=== PATIENT | male | born 1950 | race Caucasian/White ===

== ENCOUNTER 2016-08-11 06:25 | Day surgery (SDC) | payer MEDICARE, OTHER ==
[2016-08-09 12:45] LABS: BASOPHILS 0.2 %; BASOPHILS ABSOLUTE 0.02 10/3/uL (0.0-0.16); EOSINOPHILS 3.6 %; EOSINOPHILS ABSOLUTE 0.34 10/3/uL (0.0-0.53); HEMATOCRIT 40.2 % (40.0-51.0); HEMOGLOBIN 13.7 g/dL (13.6-17.8); IMMATURE GRANULOCYTES 0.1 %; IMMATURE GRANULOCYTES ABSOLUTE 0.01 10/3/uL (0.0-0.11); LYMPHOCYTES 29.7 %; LYMPHOCYTES ABSOLUTE 2.77 10/3/uL (0.67-4.30); MANUAL DIFF NO %; MEAN CORPUS HGB CONC 34.1 g/dL (32.0-36.0); MEAN CORPUSCULAR HEMOGLOB 32.6 pg (26.0-34.0); MEAN CORPUSCULAR VOLUME 95.7 fL (80-100); MEAN PLATELET VOLUME 9.9 fL (9.2-13.0); MONOCYTES 5.5 %; MONOCYTES ABSOLUTE 0.51 10/3/uL (0.21-1.20); NEUTROPHILS 60.9 %; NEUTROPHILS ABSOLUTE 5.67 10/3/uL (2.02-8.40); PLATELET COUNT 192 10/3/uL (150-400); RBC DISTRIBUTION WIDTH 14.2 % (12.0-16.0); WHITE BLOOD CELLS 9.3 10/3/uL (4.5-10.5)
[2016-08-09 13:02] LABS: A/G RATIO 1.1 (0.7-1.9); ALBUMIN 3.7 G/DL (3.5-5.0); CALCIUM, SERUM 9.1 MG/DL (8.5-10.4); CHLORIDE, SERUM 109 MMOL/L (96-112); CO2 (CARBON DIOXIDE) 25 MMOL/L (24-34); CREATININE 0.85 MG/DL (0.70-1.30); GFR AFRICAN AMERICAN 104 ML/MIN (>=60); GFR NON AFRICAN AMERICAN 90 ML/MIN (>=60); GLOBULIN 3.3 G/DL (2.5-4.1); SGOT(AST) 11 U/L (5-40); SGPT(ALT) 19 U/L (5-65); SODIUM, SERUM 144 MMOL/L (135-148); TOTAL BILIRUBIN 0.6 MG/DL (0-1.2)
[2016-08-09 13:05] LABS: ALKALINE PHOSPHATASE 125 U/L (45-117); BUN (BLOOD UREA NITROGEN) 8 MG/DL (6-23); GLUCOSE, SERUM 209 MG/DL (60-99); POTASSIUM, SERUM 5.4 MMOL/L (3.5-5.3)
--- NOTE | ~2016-08-11 | OP ---
Record Of Operation [facility] [address] [place]. [address] NAME: BARRY JEFFERS : 48 [place] [facility] [place] [id number] AGE: 66 ADM/REG DATE : 08/11/16 MR#: [id number] REPORT SERV DATE: 08/11/16 DICTATED BY: BABATUNDE ROE III DATE: 08/11/16 REPORT STATUS : Draft TRANSCRIBED BY: MODL DATE: 08/11/16 DATE OF PROCEDURE: 08/11/2016 PREOPERATIVE DIAGNOSES: Malignant melanoma of the right forearm and malignant melanoma of the right shoulder. POSTOPERATIVE DIAGNOSES: Malignant melanoma of the right forearm and malignant melanoma of the right shoulder. PROCEDURES: Wide local resection of malignant melanoma from the right forearm, wide local excision of malignant melanoma from the right shoulder, with right axillary sentinel lymph node biopsy. SURGEON: Babatunde Roe M.D. ANESTHESIA: General with intubation. COMPLICATIONS: None. ESTIMATED BLOOD LOSS: Less than 5 mL. SPECIMENS: Malignant melanoma from the right forearm, right shoulder, and sentinel lymph node from the right axilla. DRAINS: None. LAP AND SPONGE COUNT: Correct x3. BRIEF HISTORY: This 66-year-old male was recently diagnosed with a deep malignant melanoma of the right forearm, measuring 3.1 mm in thickness, and a thin malignant melanoma of the right shoulder, measuring 0.26 mm in thickness. It was felt that wide local resection of each of these with sentinel lymph node biopsy, likely to involve the right axilla, was indicated. This procedure, the risks, benefits, and alternatives, including but not limited to the risk for bleeding, infection, pain, swelling, scarring, deformity of any of the area, seroma formation, hematoma formation, wound failure, wound dehiscence, nerve injury, chronic paresthesia or pain in the arm, shoulder, or axilla, spinal accessory nerve injuries, muscle weakness or paralysis in the muscles of the upper back or shoulder, chronic lymphedema of the arm, possible need to return for completion of axillary dissection, and unforeseen complications including deep venous thrombosis, pulmonary embolus, myocardial infarction, stroke, pneumonia, and were fully and completely explained to the patient prior to the surgery. The expected length of recovery was explained to the patient. The patient had questions, which were answered. He fully understood the risks and agreed to the surgery as planned. DESCRIPTION OF PROCEDURE: After being properly identified, and after identifying each of the areas of concern with him in the preoperative area, and after lymphoscintigraphy had been Record Of Operation [address] [place]. [address] NAME: BARRY JEFFERS : 48 [place] [facility] [place]#: [id number] AGE: 66 ADM/REG DATE : 08/11/16 MR#: [id number] REPORT SERV DATE: 08/11/16 DICTATED BY: BABATUNDE ROE III DATE: 08/11/16 REPORT STATUS : Draft TRANSCRIBED BY: KAITLYN DATE: 08/11/16 performed per Radiology, the patient was taken to the operating room, and placed in the supine position on the operating room table. General anesthesia was administered. He was intubated without difficulty. His right arm was placed on the armboard. His shoulder and arm were padded appropriately. The right arm, right axilla, and right chest were prepped and draped sterilely in the usual fashion. After an appropriate "time-out" per JCAHO standards, we made an elliptical shaped vertically oriented incision centered around the melanoma of the proximal forearm. The incision was made so as to have at least a 2 cm margin around the entire periphery of the lesion. The length of the incision was approximately 8 cm. The incision was continued through the subcutaneous tissue. Hemostasis was controlled with the cautery. The entire block of tissue consisting of skin, subcutaneous tissue down to the level of the fascia was excised. The lesion was then oriented with sutures. At no point any neurovascular structures were encountered or injured. Using sharp dissection, the skin and subcutaneous tissue around the periphery of the defect was mobilized fully so to allow for primary closure. Hemostasis was assured. The subcutaneous tissue was then closed with interrupted 2-0 Vicryl sutures. The skin was closed with a running subcuticular 4-0 Monocryl stitch. The incision was injected with 0.5% Marcaine. We then made an incision in the right axilla. Using sharp dissection, we dissected into the axilla. Using the navigator probe, we identified a large sentinel lymph node. This lymph node was completely resected. The ex-vivo 10-second count of this lymph node was approximately 4200. The background count of the axilla over 10 seconds after removal of the lymph node was essentially zero. This lymph node was fairly large. It was sent for permanent pathology. The area in the axilla was inspected and palpated. No other suspicious lesions or abnormalities were identified. Hemostasis was assured. The subcutaneous tissue was closed with a running 3-0 Vicryl suture. The skin was closed with a running subcuticular 4-0 Monocryl stitch. The incision was injected with 0.5% Marcaine. Dermabond dressings were applied. The patient was then rolled into the lateral position so as to expose the right shoulder. We made an elliptical shaped vertically oriented incision around the melanoma on the right shoulder, having at least a 2 cm margin around the entire periphery of the lesion. I think this incision was approximately 6 to 7 cm, and the skin and subcutaneous tissue was then excised down to the level of the fascia. The entire block of tissue was thus removed and oriented with sutures and sent for permanent pathology. Using sharp dissection, the skin and subcutaneous tissue around entire periphery defect was mobilized for several centimeters so as to allow for primary closure. The subcutaneous tissue was closed with interrupted 2-0 Vicryl sutures. The skin was closed with a running subcuticular 4-0 Monocryl stitch. The incision was injected with 0.5% Marcaine. Dressings were applied. Anesthesia was reversed. The patient was taken to the recovery room in stable condition. He tolerated the procedure well. His family was informed the results of Record Of Operation [address] [place]. [address] NAME: BARRY JEFFERS : 48 STATUS : REG [facility]#: [id number] AGE: 66 ADM/REG DATE : 08/11/16 MR#: [id number] REPORT SERV DATE: 08/11/16 DICTATED BY: BABATUNDE ROE III DATE: 08/11/16 REPORT STATUS : Draft TRANSCRIBED BY: MODL DATE: 08/11/16 the surgery. The patient will be discharged when stable and comfortable. His family was advised to keep his wounds clean and dry for 48 hours, that he should not drive for three to four days after surgery while using narcotics, that he should not perform any heavy lifting for five to six weeks, and that he should resume his usual medications. He has been asked to return in two weeks for followup sooner if any fever, chills, wound drainage, or other problems prior to that time. He was given a prescription for Percocet 7.5 one t.i.d., #15 as needed for pain, which he was advised not to use while driving. RHJ/KHARIL Babatunde Roe III, M.D. / [id number] CC: Leticia Luna III, M.D.
--- NOTE | ~2016-08-11 | PREOPHP ---
PreOp History and Physical [id number] [place]. [address] NAME: BARRY JEFFERS : 48 STATUS : PRE [facility]#: [id number] AGE: 66 ADM/REG DATE : MR#: [id number] REPORT SERV DATE: 08/11/16 DICTATED BY: BABATUNDE ROE III DATE: 08/05/16 REPORT STATUS : Draft TRANSCRIBED BY: MODL DATE: 08/05/16 HISTORY OF PRESENT ILLNESS: This 66-year-old male comes to the operating room for wide local resection of a malignant melanoma of the right upper shoulder, wide excision of a malignant melanoma of the right forearm, sentinel lymph node biopsy. The patient was recently evaluated for cutaneous lesion on his left upper arm which would not heal. He was found to have several other lesions, including one lesion on his right shoulder which was biopsied and found to be melanoma as well as one on the right forearm. The lesion on the right forearm is a 3.1 mm thickness, Jericho's level 4 malignant melanoma, with mitotic index of 10. The lesion removed from the right shoulder was 0.26 mm in size. The patient comes to the operating room now for wide local resection of each of these malignancies with sentinel lymph node biopsy which would likely involve the right axilla. PAST MEDICAL HISTORY: 1. COPD secondary to tobacco abuse. 2. Tobacco abuse. 3. Obesity. 4. Hypertension. 5. Coronary artery disease. 6. Insulin-dependent diabetes mellitus. MEDICATIONS: Amlodipine, atorvastatin, carvedilol, gabapentin, insulin, Victoza, losartan, metformin, and vitamin D. PAST SURGICAL HISTORY: Status post coronary artery bypass graft. ALLERGIES: MONOPRIL. FAMILY HISTORY: Positive for diabetes and heart disease. SOCIAL HISTORY: The patient has a history of tobacco abuse and alcohol use. REVIEW OF SYSTEMS: The patient complains of chronic dyspnea, easy bruising, back pain. His 14-point review of systems is otherwise unremarkable. PHYSICAL EXAMINATION: GENERAL: Reveals an obese male, in no acute distress. He is alert and oriented x3. VITAL SIGNS: Blood pressure 90/58, heart rate 67, temp 98.7. HEENT: Unremarkable. Cranial nerves II through XII were normal. NECK: Unremarkable with no adenopathy. Over the right shoulder, there is a large open wound where a shave biopsy had been performed. The length of the wound is some 3 cm in size. The wound was clean and granulating, but a full-thickness wound. Both left and right axilla normal with no adenopathy. Over the right forearm, the patient has a biopsy site with sutures in place for melanoma which was biopsied. LUNGS: Clear. CARDIAC: Normal. EXTREMITIES: Otherwise unremarkable. PreOp History and Physical [address] [address] NAME: BARRY JEFFERS : 48 [place] [facility] [id number] AGE: 66 ADM/REG DATE : MR#: [id number] REPORT SERV DATE: 08/11/16 DICTATED BY: BABATUNDE ROE III DATE: 08/05/16 REPORT STATUS : Draft TRANSCRIBED BY: KAITLYN DATE: 08/05/16 SKIN: The patient has marked evidence for skin damage over his exposed skin. ASSESSMENT: 1. A 66-year-old male with biopsy-proven malignant melanoma, 3.1 mm in thickness of the right proximal radial forearm, Jericho level 4, with mitotic rate of 10. 2. Biopsy-proven malignant melanoma of the right upper shoulder, 0.26 mm in thickness, Jericho's level 2. 3. Tobacco abuse. 4. Chronic obstructive pulmonary disease secondary to tobacco abuse. 5. Coronary artery disease. 6. Obesity. 7. Hypertension. 8. Insulin-dependent diabetes mellitus. 9. History of chronic obstructive pulmonary disease secondary to tobacco abuse. 10.History of coronary artery bypass graft. PLAN: The patient comes to the operating room now for wide resection of melanoma of the right shoulder and right forearm with sentinel lymph node biopsy which would likely involve the right axilla. This procedure, the risks, benefits, and alternatives, including not limited to the risk for bleeding, infection, pain, swelling, scarring, deformity of any of the areas or all of them, seroma formation, hematoma formation, wound failure, wound dehiscence, nerve injury, chronic paresthesia or pain in the arm, shoulder, or axilla, chronic lymphedema of the arm, nerve injuries, muscle weakness or paralysis in the muscles of upper back or shoulder, possible need to return for completion axillary dissection, and unforeseen complications including deep venous thrombosis, pulmonary embolus, myocardial infarction, stroke, pneumonia, and , have been explained to the patient prior to surgery. His questions were answered. He understands the risks and agrees to surgery as planned. RHJ/KAITLYN Babatunde Roe III, M.D. / [id number]
[~2016-08-11 06:25] MED LIST: AMARYL2 PO; ASAB PO; BYETTA10 SC; COMBIVENT INH; CORDARONE PO; COREG3 PO; COREG6 PO; COZ50 PO; COZAAR100 MG PO; GINKGO BILO2 PO; GLUCOPHAGE1000 MG PO; JANUVIA100 MG PO; LANTUSCART SC; LIPITOR40 PO; METANX; NEUR300 PO; NEUR600 PO; NORCO1 TA1 PO; NORV5 PO; SYMBICORT 160/41 INH INH; VICTOZA18 MG/3 ML SC; VITAMIN D31000 UNIT PO; ZOCOR20 PO; ZOCOR40 PO; ZYRTEC ALLGY10 MG PO
== END 2016-08-11 14:36 | disposition home or self-care (01) ==
LOC: SDC 06:25
PROVIDERS: Surgery
PROC: 0JBG0ZX Excision of Right Lower Arm Subcutaneous Tissue and Fascia, Open Approach, Diagnostic (ICD-10-PCS; 2016-08-11)
PROC: 07B50ZX Excision of Right Axillary Lymphatic, Open Approach, Diagnostic (ICD-10-PCS; 2016-08-11)
PROC: 0XB20ZZ Excision of Right Shoulder Region, Open Approach (ICD-10-PCS; principal; 2016-08-11 10:15)
DX: C49.11 Malignant neoplasm of connective and soft tissue of right upper limb, including shoulder (principal); J44.9 Chronic obstructive pulmonary disease, unspecified; G47.33 Obstructive sleep apnea (adult) (pediatric); I25.10 Atherosclerotic heart disease of native coronary artery without angina pectoris; I12.9 Hypertensive chronic kidney disease with stage 1 through stage 4 chronic kidney disease, or unspecified chronic kidney disease; E11.22 Type 2 diabetes mellitus with diabetic chronic kidney disease; N18.9 Chronic kidney disease, unspecified; Z95.1 Presence of aortocoronary bypass graft; Z88.8 Allergy status to other drugs, medicaments and biological substances; Z79.4 Long term (current) use of insulin; Z79.84 Long term (current) use of oral hypoglycemic drugs; Z79.82 Long term (current) use of aspirin; Z79.899 Other long term (current) drug therapy
CPT/HCPCS: 71020; 78195; 80053; 82962; 85025; 88305; 88307; 88341; 88342; 93005; A9270-GY; A9541; J0690; J2405; J2710; J3010